=== PATIENT | male | born 1950 | race Caucasian/White ===

== ENCOUNTER 2021-05-24 08:38 | Emergency (ER) | payer MEDICARE, SELFPAY ==
[2021-05-24] VITALS (32 sets, daily range): BP systolic 129–212; BP diastolic 60–95; PULSE 55–74; RESP 9–27; TEMP 36.6; O2SAT 89–98
--- NOTE | ~2021-05-24 | NM_ITS ---
EXAMINATION: NM pulmonary perfusion DATE: 05/24/2021 12:12 INDICATION: Shortness of breath. TECHNIQUE: 5.5 mCi Tc-99m MAA was administered intravenously for perfusion images. Scintigraphic shady ges of the chest were obtained. COMPARISON: Chest single view 05/24/2021 FINDINGS: Perfusion images show a moderate-sized defect in superior segment left lower lobe. IMPRESSION: 1. Nondiagnostic (intermediate probability for pulmonary embolism). Reviewed, dictated and finalized at location A. HEAD CARPENTER
--- NOTE | ~2021-05-24 | XR_ITS ---
EXAMINATION: XR chest 1V DATE: 05/24/2021 09:53 INDICATION: Dizziness. TECHNIQUE: A single frontal view of the chest was obtained. COMPARISON: None. FINDINGS: There is mild atelectasis in lingula. No pleural effusion or pneumothorax. The heart size i s normal. Median sternotomy wires and mediastinal surgical clips are seen, likely from prior coronary artery bypass grafting. IMPRESSION: 1. Mild atelectasis in lingula. Reviewed, dictated and finalized at location A. TAL COMPOSER
--- NOTE | ~2021-05-24 | CT_ITS ---
EXAMINATION: CT brain wo con DATE: 05/24/2021 09:52 INDICATION: Dizziness. Gait abnormality. TECHNIQUE: Computed tomography (CT) of the head was performed without intravenous contrast. The mA wa s adjusted according to patient size. Iterative reconstruction technique was employed. The dose-lengt h product was 605.33 mGy-cm. COMPARISON: None FINDINGS: There is no intracranial hemorrhage, acute infarction, or abnormal intracranial mass lesion . The ventricles are normal in size. There are likely changes of ocular lens replacement surgeries. T here is mild mucosal thickening in the paranasal sinuses. The mastoid air cells are normal. There is an 11 mm subcutaneous mass with peripheral calcification in left posterior scalp, likely benign. IMPRESSION: 1. Normal brain. Reviewed, dictated and finalized at location A. LOGIST IMPRESSION: 1. Normal brain.
--- NOTE | ~2021-05-24 | US_ITS ---
EXAMINATION: US venous doppler LE EXAM DATE: 05/24/2021 13:24 INDICATION: Shortness of breath. TECHNIQUE: Multiple grayscale, color flow and Doppler images of the lower extremity deep venous syste ms bilaterally were obtained and reviewed. There is no prior study for comparison. FINDINGS: Right side: The right common femoral, femoral and profunda veins demonstrate normal color flow, respi ratory variation, augmentation and compressibility. Compressibility, color flow confirmed within the right popliteal, posterior tibial, peroneal, and greater saphenous veins. Left side: The left common femoral, femoral and profunda veins demonstrate normal color flow, respira tory variation, augmentation and compressibility. Compressibility, color flow confirmed within the l eft popliteal, posterior tibial, peroneal, and greater saphenous veins. IMPRESSION: No lower extremity deep venous thrombosis bilaterally. Reviewed, dictated and finalized at location B. OM LIQUOR ATTENDANT
--- NOTE | 2021-05-24 08:43 | ECG_ITS ---
Measurements Intervals [place] Rate: 71 P: -10 HI: 202 QRS: 27 QRSD: 114 T: 120 QT: 424 QTc: 462 Interpretive Statements SINUS RHYTHM WITH SINUS ARRHYTHMIA VENTRICULAR PREMATURE COMPLEX INTRAVENTRICULAR CONDUCTION DELAY CONSIDER INFERIOR INFARCT, AGE INDETERMINATE BORDERLINE ST-T WAVE ABNORMALITY- ANTEROLAT/HIGH LAT LEADS BASELINE ARTIFACT- I, II, III, AVR, AVL, AVF, V1, V3-V6 ABNORMAL ECG Electronically Signed On 05-24-2021 8:51:49 [employer]BER by Kit Mccann D.O.
[2021-05-24 09:52] LABS: Basophils Absolute Auto 0.1 K/mm3 (0.0-0.1); Basophils Percent Auto 0.8 % (0.2-1.2); Eosinophils Absolute Auto 0.3 K/mm3 (0-0.3); Eosinophils Percent Auto 3.4 % (0-4.4); Hematocrit 43.1 % (42.0-52.0); Hemoglobin 14.3 g/dL (14.0-18.0); Immature Granulocyte Absolute 0.04 K/mm3 (0.00-0.031); Immature Granulocyte Percent A 0.5 % (0-0.5); Lymphocytes Absolute Auto 1.45 K/mm3 (0.9-3.2); Mean Corpuscular HGB Conc 33.2 g/dl (32-36); Mean Corpuscular Hemoglobin 32.5 pg (26-34); Monocytes Absolute Auto 0.6 K/mm3 (0.1-0.6); Monocytes Percent Auto 7.2 % (2.6-8.5); Neutrophils Absolute Auto 6.1 K/mm3 (1.3-6.7); Neutrophils Percent Auto 71.1 % (45.5-73.1); Platelet Count Result 202 k/mm3 (150-375); Red Cell Distribution Width 12.6 % (11.5-14.5); White Blood Count 8.5 K/mm3 (4.5-10.0)
[2021-05-24 09:54] LABS: Alanine Aminotransferase 25 U/L (4-50); Albumin Level 3.6 g/dL (3.5-5.1); Alkaline Phosphatase 46 U/L (38-126); Anion Gap 7 mmol/L (8-16); Aspartate Amino Transferase 31 U/L (17-59); Bilirubin,Total 0.9 mg/dL (0.2-1.3); Blood Urea Nitrogen 27 mg/dL (9-20); Calcium 9.1 mg/dL (8.4-10.2); Carbon Dioxide 25 mmol/L (22-30); Chloride 108 mmol/L (98-107); Estimated CRCL calculation 55 ml/min; Estimated Glomerular Filt Rate 50; Glucose 149 mg/dL (65-110); Potassium 4.1 mmol/L (3.4-5.0); Sodium 140 mmol/L (137-145)
[2021-05-24 10:04] LABS: Troponin I 0.016 ng/mL (0.000-0.034)
[2021-05-24 11:14] LABS: Add Urine Microscopic? YES; Appearance Urine Clear (Clear); Bilirubin Urine Negative (Negative); Blood Urine Negative (Negative); Color Urine Yellow (Yellow); Glucose Urine UA Negative (Negative); Ketones Urine Negative (Negative); Leukocyte Esterase Ur Negative LEU/UL (Negative); Mucus Urine Rare /lpf; Nitrate Urine Negative (Negative); Protein Urine 3+ mg/dL (Negative); RBC Urine 0-2 /hpf (0-2); Specific Grav Ur 1.015 (1.001-1.035); Squamous Epithelial Cell Urine Rare /hpf (Few); Urobilinogen Urine Negative mg/dL (<2.0); WBC Urine 0-3 /hpf
--- NOTE | 2021-05-24 12:33 | PC.NURSE ---
Pt off floor to dopplers
--- NOTE | 2021-05-24 12:33 | PC.NURSE ---
Pt blood sugar on personal monitor is 81, requested apple juice.
--- NOTE | 2021-05-24 14:45 | ED.DIZZY ---
HPI - Dizziness General Chief Complaint: Dizziness Stated Complaint: dizzy Time Seen by Provider: 05/24/21 09:17 Source: patient Mode of arrival: ambulatory Limitations: no limitations History of Present Illness HPI Narrative: Patient presents with chief complaint of feeling short of breath this morning after awakening and having some dizziness. Patient reports it is normal for him to feel dizzy when he first wakes up as he has sleep apnea and does not wear CPAP. 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 He reports after taking some deep breaths the dizziness subsides and he feels normal. Patient reports that this took longer than expected for him on today and he is concerned that he may have a pulmonary embolism. Patient denies any pain or swelling in his lower extremities however he has driven here from [place] and is going to be driving to [place]. Patient reports the dizziness was worse upon standing. He denies any strokelike symptoms or neurologic deficits. Patient reports many years ago he did have a PE and was on blood thinners but does not take any blood thinners this time has been present for many years. Patient reports a history of hypertension and states that his primary care has been adjusting his hypertension medication in order to find appropriate control. Related Data Home Medications Medication Instructions Recorded Confirmed Calcium-Vitamin D 05/24/21 Novolin 70-30 FlexPen U-100 05/24/21 aspirin [Adult Aspirin] 81 mg PO DAILY 05/24/21 carvedilol 25 mg BID 05/24/21 clonidine HCl 0.1 mg BID 05/24/21 finasteride 5 mg DAILY 05/24/21 furosemide 20 mg DAILY 05/24/21 gabapentin 300 mg PO BID 05/24/21 rosuvastatin 20 mg DAILY 05/24/21 05/24/21 tamsulosin 0.4 mg PO BID 05/24/21 Allergies Allergy/AdvReac Type Severity Reaction Status Date / Time albuterol AdvReac Palpitation Verified 05/24/21 12:24 s codeine AdvReac Unknown Verified 05/24/21 12:24 empagliflozin AdvReac Dry Mouth Verified 05/24/21 12:24 [From Jardiance] levofloxacin AdvReac Other Verified 05/24/21 12:24 Sulfa (Sulfonamide AdvReac Other Verified 05/24/21 12:24 Antibiotics) vancomycin AdvReac Nausea and Verified 05/24/21 12:24 Vomiting Review of Systems Review of Systems: CONSTITUTIONAL: Denies fever, chills, or sweats. EYES: Denies visual changes, redness, or discharge. ENT: Denies rhinorrhea, congestion, sore throat, or otalgia. CARDIOVASCULAR: Denies chest pain, palpitations, or edema. RESPIRATORY: Reports shortness of breath denies cough GASTROINTESTINAL: Denies abdominal pain, nausea, vomiting, or diarrhea. GENITOURINARY: Denies dysuria or hematuria. SKIN: Denies rash or itching. MUSCULOSKELETAL: Denies back pain, joint pain, or myalgia. NEUROLOGIC: Reports dizziness denies headache, numbness, or weakness. PSYCHIATRIC: Denies anxiety or depression. Exam Narrative: GENERAL: Well-appearing, well-nourished, and in no acute distress. HEAD: Normocephalic, atraumatic. EYES: PERRLA and EOMI. NECK: Supple. No adenopathy or masses. Range of motion intact. CHEST: Clear to auscultation. No respiratory distress. No wheezes rales or rhonchi. Not tachypneic. Speaks in full sentences without difficulty or distress. Patient satting 96% on room air. HEART: Regular rate and rhythm. No murmur heard. Normal peripheral pulses. EXTREMITIES: Normal range of motion. No edema. SKIN: Warm, dry, no rash. NEURO: No focal deficits. Alert and oriented x3. PSYCH: Normal mood and affect. Course Vital Signs Vital signs: Vital Signs Temperature 98 F 05/24/21 08:38 Pulse Rate 73 05/24/21 08:38 Respiratory Rate 18 05/24/21 08:38 Blood Pressure 168/74 H 05/24/21 08:38 Pulse Oximetry 97 05/24/21 08:38 Temperature 97.8 F 05/24/21 17:13 Pulse Rate 56 L 05/24/21 17:13 Respiratory Rate 18 05/24
--- NOTE | 2021-05-24 14:59 | PC.NURSE ---
BP auscultated at 210/95. PA Diara aware, ordered clonidine
[2021-05-24] MEDS: cloNIDine HCL 0.1 MG TABLET PO (15:03)
== END 2021-05-24 17:17 | disposition left against medical advice (07) ==
PROVIDERS: Physician Assistant; Emergency Provider Emergency Medicine
DX: R06.02 Shortness of breath (principal); I10 Essential (primary) hypertension; R42 Dizziness and giddiness; Z86.711 Personal history of pulmonary embolism; Z79.82 Long term (current) use of aspirin; I49.3 Ventricular premature depolarization; I45.9 Conduction disorder, unspecified; R94.31 Abnormal electrocardiogram [ECG] [EKG]; R91.8 Other nonspecific abnormal finding of lung field
CPT/HCPCS: 36415; 70450; 71045; 78580; 80053; 81001; 84484; 85025; 93005; 93970; 99284; A9270; A9540